=== PATIENT | male | born 1980 | race Caucasian/White ===

== ENCOUNTER 2017-03-13 22:41 | Emergency (ER) | payer BC ==
[~2017-03-13] VITALS: Ht 180.3 cm; Wt 97.5 kg
[2017-03-13 23:10] VITALS: BP 146/93
--- NOTE | 2017-03-14 01:31 | PHYS DOC ---
Past Medical History Past Medical History: No Pertinent History Past Surgical History: Other Additional Past Surgical Histo: RIGHT KNEE AND RIGHT HAND Alcohol Use: None Drug Use: None Adult General Chief Complaint Chief Complaint: LACERATION/AVULSION [facility] HPI Patient is a 37 year old male who presents with complaint of laceration of the left fifth digit. Patient states that this took place prior to arrival. Patient was working with a pocket knife which fell off a table that he was working on. Patient tried to catch the knife with his hand, but accidentally ran the medial edge of his left fifth digit into the blade causing a laceration. Patient states bleeding is controlled at this time. Patient denies any loss of function in the affected digit. Patient is not up-to-date in his tetanus immunization status. Review of Systems Review of Systems Constitutional: Denies fever or chills [] HENT: Denies nasal congestion or sore throat [] Respiratory: Denies cough or shortness of breath [] Cardiovascular: No additional information not addressed in HPI [] Musculoskeletal: Denies back pain or joint pain [] Integument: Small finger laceration [] Current Medications Current Medications Current Medications Medications (Trade) Dose Ordered Sig/Vivian Start Time Stop Time Status Last Admin Dose Admin Diphtheria/ Tetanus/Acell Pertussis (Boostrix) 0.5 ml ONCE ONCE 03/14/17 02:00 03/14/17 02:01 DC 03/14/17 01:49 0.5 ML Allergies Allergies Allergies Coded Allergies Type Severity Reaction Last Updated Verified No Known Drug Allergies 03/13/17 No Physical Exam Physical Exam Constitutional: Well developed, well nourished, no acute distress, non-toxic appearance. [] HENT: Normocephalic, atraumatic, bilateral external ears normal, oropharynx moist, no oral exudates, nose normal. [] Lungs & Thorax: Bilateral breath sounds clear to auscultation [] Abdomen: Bowel sounds normal, soft, no tenderness, no masses, no pulsatile masses. [] Extremities: Warm and half centimeter curvilinear laceration along medial aspect of distal left fifth digit of hand, bleeding controlled, no visualized tendon involvement, range of motion normal in the left fifth digit of hand. [] Neurologic: Alert and oriented X 3, normal motor function, normal sensory function, no focal deficits noted. [] Current Patient Data Vital Signs Vital Signs Date Time Temp Pulse Resp B/P Pulse Ox O2 Delivery O2 Flow Rate FiO2 03/13/17 23:10 98.2 83 16 95 Room Air 98.2 03/13/17 23:09 146/93 EKG EKG Not performed [] Radiology/Procedures Radiology/Procedures Indication: Left fifth digit fingertip laceration Procedure: The patient was placed in the appropriate position. The area was then cleansed with antibacterial soap and tapwater. The laceration was closed using skin affix liquid adhesive. Total repaired wound length: 1.5 cm. The patient tolerated the procedure without difficulty. Complications: None.[] Course & Med Decision Making Course & Med Decision Making Pertinent Labs and Imaging studies reviewed. (See chart for details) Patient's tetanus status was updated with a Tdap booster. Patient's laceration was repaired as outlined in the procedure note. Recommended return to emergency department for any worsening symptoms. Patient voiced understanding and in agreement with treatment plan. Dragon Disclaimer Dragon Disclaimer This electronic medical record was generated, in whole or in part, using a voice recognition dictation system. Departure Departure Impression: Primary Impression: Finger laceration Disposition: HOME, SELF-CARE Condition: IMPROVED Referrals: DIALLO BENNETT DO (PCP) Patient Instructions: Fingertip Laceration Additional Instructions: Your tetanus immunization was updated in the emergency department. Do not use any petroleum based ointments like Neosporin on your cut as this will dissolve your liquid bandage. You may use mild soap and water to keep the area clean. You will not require follow-up for removal of your liquid bandage as this will come off within about a week. Problem Qualifiers Primary Impression: Finger laceration Encounter type: initial encounter Qualified Code: S61.219A - Laceration without foreign body of unspecified finger without damage to nail, initial encounter THIERRY ELIZALDE MD Mar 14, 2017 01:31
[2017-03-14] MEDS ORDERED: DIPHTH,PERTUSS(ACELL),TET TOX 0.5 ML DISP.SYRIN. VAX IM ONE (02:00)
== END 2017-03-14 02:39 | disposition home or self-care (01) ==
LOC: ER 22:41
DX: S61.217A Laceration without foreign body of left little finger without damage to nail, initial encounter (principal); W26.0XXA Contact with knife, initial encounter; Y93.89 Activity, other specified; Y92.89 Other specified places as the place of occurrence of the external cause; Y99.2 Volunteer activity
CPT/HCPCS: 12001; 90471; 90715; 96372; 99283-25